=== PATIENT | male | born 1985 | race Caucasian/White ===

== ENCOUNTER 2020-04-07 15:23 | Emergency (ER) | payer OTHER ==
[2020-04-07 15:31] VITALS: RESP 16
[2020-04-07] MEDS: PROPARACAINE 0.5% OPHTH DROPS 15 ML BTL RIGHT EYE STA (15:57)
[2020-04-07] MEDS: FLUORESCEIN STRIPS 1 MG STRIP RIGHT EYE ONE (15:58)
--- NOTE | 2020-04-07 15:59 | ED ---
Eye Problem HPI - General Chief complaint: Eye Problems Stated complaint: R eye pain Time Seen by Provider: 04/07/20 15:36 Source: patient Mode of arrival: ambulatory Limitations: no limitations - History of Present Illness Initial comments: Patient is a 35-year-old male presenting to emergency Department with complaints of getting hot antifreeze into his right eye. Patient states about 40 minutes prior to arrival he was changing a radiator cap when it flew off and hot antifreeze splashed on his right hand as well as onto his right eye. Patient st ates he did attempt to flush the right eye with lots of water however he feels like his vision is slightly blurry and he is having some burning around his right eye. He also has been flushing his right hand. He denies wearing contacts. Patient has no other complaints at this time. Upon arrival to the ER his vitals are stable. - Related Data Home Medications Medication Instructions Recorded Confirmed Esomeprazole Magnesium [NexIUM 20 mg PO DAILY 04/07/20 04/07/20 24Hr] Allergies Allergy/AdvReac Type Severity Reaction Status Date / Time omeprazole [From Prilosec] AdvReac Nausea Verified 04/07/20 16:56 ondansetron [From Zofran] AdvReac Nausea & Verified 04/07/20 16:56 Vomiting tramadol AdvReac Nausea & Verified 04/07/20 16:56 Vomiting Review of Systems ROS Statement: Those systems with pertinent positive or pertinent negative responses have been documented in the HPI. ROS Other: All systems not noted in ROS Statement are negative. 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 Patient is nontoxic and in no acute distress. HEAD: Atraumatic, normocephalic. EYES: Pupils equal round and reactive to light, extraocular movements intact, sclera anicteric. Eyelids were unremarkable. Right conjunctiva slightly injected. He does have some superficial first-degree chavarria on outside of the eye, lateral aspect. no blistering. Visual acuity: left eye 20/20, right 20/70. ENT: TMs normal, nares patent, oropharynx clear without exudates. Moist mucous membranes. NECK: Normal range of motion, supple without lymphadenopathy or JVD. LUNGS: Unlabored respirations. Breath sounds clear to auscultation bilaterally and equal. No wheezes rales or rhonchi. HEART: Regular rate and rhythm without murmurs, rubs or gallops. ABDOMEN: Soft, nontender, normoactive bowel sounds. No guarding, no rebound. No masses appreciated. : Deferred MUSCULOSKELETAL: Normal extremities with adequate strength and normal range of motion, no pitting or edema. No clubbing or cyanosis. NEUROLOGICAL: Patient is alert and oriented x 3. Motor and sensory are also intact. Cranial nerves II through XII grossly intact. Symmetrical smile. Normal speech, normal gait. PSYCH: Normal mood, normal affect. SKIN: Warm, Dry, normal turgor. Patient has superficial burn on his right index and middle finger. Some mild erythema of the right hand, no blistering. Limitations: no limitations Course Vital Signs 04/07/20 04/07/20 04/07/20 15:27 16:28 17:07 Temperature 98.6 F 98.3 F 98.3 F Pulse Rate 73 68 68 Respiratory 16 16 16 Rate Blood Pressure 161/85 148/78 148/82 O2 Sat by Pulse 96 98 98 Oximetry Medical Decision Making - Medical Decision Making Patient is a 35-year-old male who presents after getting hot antifreeze splashed onto the right side of his face as well as his right hand. He was complaining of blurry vision and irritation of the right eye. Patient's eye was flushed with approximately 1 L of fluid, fluorescein stain did not reveal any significant uptake. Patient did have some relief with a drop of proparacaine drops. Patient's visual acuity of the right eye is 20/70, normally 20/20. I did speak with Dr. Edward who is okay with patient being discharged with eye lubricating drops. He recommends Tylenol/Motrin for discomfort. If symptoms persist patient can follow-up with Dr. Edward in his office. Patient is in agreement with this plan of care. He is stable for discharge. Return parameters were discussed with the patient and he verbalized understanding. Case discussed with Dr. Faith. Disposition Clinical Impression: Corneal irritation of right eye, First degree burn of face, First degree burn of hand Disposition: HOME SELF-CARE Condition: Stable Instructions (If sedation given, give patient instructions): Eye Lubricant (Into the eye) Additional Instructions: Please return to the Emergency Department if symptoms worsen or any other concerns. Continue with eye drops as prescribed. 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 May take Tylenol Motrin for discomfort. Keep the chavarria clean and dry. Is patient prescribed a controlled substance at d/c from ED?: No Referrals: None,Stated [Primary Care Provider] - 1-2 days Bacilio Edward MD [STAFF PHYSICIAN] - 1-2 days
[2020-04-07 16:33] VITALS: PULSE 68; TEMP 98.3
[2020-04-07] MEDS: KETOROLAC 15 MG/ML 1 ML VIAL IM STA (16:58)
[2020-04-07] MEDS: ARTIFICIAL TEARS-HYPROMELLOSE DROPS 15 ML BTL RIGHT EYE PRN (17:04)
[2020-04-07 17:09] VITALS: BP 148/82
== END 2020-04-07 17:09 | disposition home or self-care (01) ==
LOC: EC 15:23
DX: T26.01XA Burn of right eyelid and periocular area, initial encounter (principal); T23.131A Burn of first degree of multiple right fingers (nail), not including thumb, initial encounter; T23.101A Burn of first degree of right hand, unspecified site, initial encounter; T31.0 Burns involving less than 10% of body surface; Z88.6 Allergy status to analgesic agent; Z88.8 Allergy status to other drugs, medicaments and biological substances; Z86.14 Personal history of Methicillin resistant Staphylococcus aureus infection; X12.XXXA Contact with other hot fluids, initial encounter
CPT/HCPCS: 99283; 96372; J1885

== ENCOUNTER 2021-03-13 16:33 | Emergency (ER) | payer OTHER ==
[2021-03-13] MEDS ORDERED: SODIUM CHLORIDE 0.9% 500 ML 500 ML IV STA (19:07)
[2021-03-13] MEDS ORDERED: MAG HYDROX/AL HYDROX/SIMETH 30 ML, HYOSCYAMINE ELIXIR 10 ML, LIDOCAINE VISCOUS 2% 10 ML PO STA ×3 (19:07)
[2021-03-13] MEDS ORDERED: SODIUM CHLORIDE 0.9% 1,000 ML IV STA (19:07)
[2021-03-13] MEDS ORDERED: FAMOTIDINE 20 MG/2 ML VIAL IV STA (19:08)
[2021-03-13] MEDS ORDERED: HYDROmorphone 0.5 MG/0.5 ML SYRINGE IVP STA (19:08)
[2021-03-13] MEDS ORDERED: METOCLOPRAMIDE 5 MG/ML 2 ML VIAL IVP STA (19:08)
--- NOTE | 2021-03-13 19:14 | ED ---
Abdominal Pain HPI - General Chief Complaint: Abdominal Pain Stated Complaint: abd pain Time Seen by Provider: 03/13/21 18:56 Source: patient, RN notes reviewed Mode of arrival: ambulatory Limitations: no limitations - History of Present Illness Initial Comments: This a 36-year-old male presents emergency dept with chief complaint of abdominal pain. Patient states she's been having increasing abdominal last 3 days. Patient states that he has a history of gastric ulcers. Patient is on current Nexium. Patient states his poor diet causing his symptoms. Patient states he felt that his stools been darker than usual. Patient states occasionally does take MiraLAX for has not been recently. Denies NSAID use. Denies vomiting states nauseated. - Related Data Home Medications Medication Instructions Recorded Confirmed Esomeprazole Magnesium [NexIUM 20 mg PO DAILY 04/07/20 04/07/20 24Hr] Previous Rx's Medication Instructions Recorded Metoclopramide [Reglan] 10 mg PO TID PRN #15 tab 03/13/21 Sucralfate [Carafate] 1 gm PO BID #20 tablet 03/13/21 Allergies Allergy/AdvReac Type Severity Reaction Status Date / Time Penicillins Allergy Rash/Hives Verified 03/13/21 16:44 omeprazole [From Prilosec] AdvReac Nausea Verified 03/13/21 16:44 ondansetron [From Zofran] AdvReac Nausea & Verified 03/13/21 16:44 Vomiting tramadol AdvReac Nausea & Verified 03/13/21 16:44 Vomiting Review of Systems ROS Statement: Those systems with pertinent positive or pertinent negative responses have been documented in the HPI. ROS Other: All systems not noted in ROS Statement are negative. Past Medical History Past Medical History: Asthma Additional Past Medical History / Comment(s): esophogeal ulcers History of Any Multi-Drug Resistant Organisms: MRSA Date of last positivie culture/infection: 2014 MDRO Source:: (L) leg Past Surgical History: No Surgical Hx Reported Past Psychological History: No Psychological Hx Reported Smoking Status: Never smoker Past Alcohol Use History: None Reported Past Drug Use History: Marijuana General Exam Limitations: no limitations General appearance: alert, in no apparent distress Head exam: Present: atraumatic, normocephalic, normal inspection Eye exam: Present: normal appearance, PERRL, EOMI. Absent: scleral icterus, conjunctival injection, periorbital swelling Neck exam: Present: normal inspection. Absent: tenderness, meningismus, lymphadenopathy Respiratory exam: Present: normal lung sounds bilaterally. Absent: respiratory distress, wheezes, rales, rhonchi, stridor Cardiovascular Exam: Present: regular rate, normal rhythm, normal heart sounds. Absent: systolic murmur, diastolic murmur, rubs, gallop, clicks GI/Abdominal exam: Present: soft, tenderness (Right upper quadrant, epigastric), normal bowel sounds. Absent: distended, guarding, rebound, rigid Course Vital Signs 03/13/21 03/13/21 16:42 20:48 Temperature 98.7 F Pulse Rate 72 76 Respiratory 19 20 Rate Blood Pressure 133/84 137/80 O2 Sat by Pulse 97 97 Oximetry Medical Decision Making - Medical Decision Making All some labs unremarkable. Patient did have mild dehydration was hydrated, given GI cocktail and antiemetics feels improved he discharged in stable condition. - Lab Data Result diagrams: 03/13/21 19:48 03/13/21 19:48 Lab Results 03/13/21 03/13/21 03/13/21 Range/Units 19:48 19:48 19:48 WBC 5.9 (3.8-10.6) k/uL RBC 5.01 (4.30-5.90) m/uL Hgb 14.7 (13.0-17.5) gm/dL Hct 44.4 (39.0-53.0) % MCV 88.8 (80.0-100.0) fL MCH 29.4 (25.0-35.0) pg MCHC 33.1 (31.0-37.0) g/dL RDW 12.4 (11.5-15.5) % Plt Count 267 (150-450) k/uL MPV 7.8 Neutrophils % 64 % Lymphocytes % 22 % Monocytes % 10 % Eosinophils % 1 % Basophils % 1 % Neutrophils # 3.8 (1.3-7.7) k/uL Lymphocytes # 1.3 (1.0-4.8) k/uL Monocytes # 0.6 (0-1.0) k/uL Eosinophils # 0.1 (0-0.7) k/uL Basophils # 0.1 (0-0.2) k/uL PT 11.3 (9.0-12.0) sec INR 1.1 (<1.2) APTT 26.0 (22.0-30.0) sec Sodium (137-145) mmol/L Potassium (3.5-5.1) mmol/L Chloride (98-107) mmol/L Carbon Dioxide (22-30) mmol/L Anion Gap mmol/L BUN (9-20) mg/dL Creatinine (0.66-1.25) mg/dL Est GFR (CKD-EPI)AfAm (>60 ml/min/1.73 sqM) Est GFR (CKD-EPI)NonAf (>60 ml/min/1.73 sqM) Glucose (74-99) mg/dL Calcium (8.4-10.2) mg/dL Total Bilirubin (0.2-1.3) mg/dL AST (17-59) U/L ALT (4-49) U/L Alkaline Phosphatase (38-126) U/L Total Protein (6.3-8.2) g/dL Albumin (3.5-5.0) g/dL Amylase (30-110) U/L Lipase (23-300) U/L Urine Color Yellow Urine Appearance Clear (Clear) Urine pH 5.5 (5.0-8.0) Ur Specific [place] 1.035 (1.001-1.035) Urine Protein 1+ H (Negative) Urine Glucose (UA) Negative (Negative) Urine Ketones 2+ H (Negative) Urine Blood Negative (Negative) Urine Nitrite Negative (Negative) Urine Bilirubin Negative (Negative) Urine Urobilinogen <2.0 (<2.0) mg/dL Ur Leukocyte Esterase Negative (Negative) Urine RBC <1 (0-5) /hpf Urine WBC 1 (0-5) /hpf Hyaline Casts 3 H (0-2) /lpf Urine Mucus Many H (None) /hpf 03/13/21 Range/Units 19:48 WBC (3.8-10.6) k/uL RBC (4.30-5.90) m/uL Hgb (13.0-17.5) gm/dL Hct (39.0-53.0) % MCV (80.0-100.0) fL MCH (25.0-35.0) pg MCHC (31.0-37.0) g/dL RDW (11.5-15.5) % Plt Count (150-450) k/uL MPV Neutrophils % % Lymphocytes % % Monocytes % % Eosinophils % % Basophils % % Neutrophils # (1.3-7.7) k/uL Lymphocytes # (1.0-4.8) k/uL Monocytes # (0-1.0) k/uL Eosinophils # (0-0.7) k/uL Basophils # (0-0.2) k/uL PT (9.0-12.0) sec INR (<1.2) APTT (22.0-30.0) sec Sodium 140 (137-145) mmol/L Potassium 4.0 (3.5-5.1) mmol/L Chloride 101 (98-107) mmol/L Carbon Dioxide 27 (22-30) mmol/L Anion Gap 12 mmol/L BUN 20 (9-20) mg/dL Creatinine 1.03 (0.66-1.25) mg/dL Est GFR (CKD-EPI)AfAm >90 (>60 ml/min/1.73 sqM) Est GFR (CKD-EPI)NonAf >90 (>60 ml/min/1.73 sqM) Glucose 89 (74-99) mg/dL Calcium 9.2 (8.4-10.2) mg/dL Total Bilirubin 0.5 (0.2-1.3) mg/dL AST 34 (17-59) U/L ALT 42 (4-49) U/L Alkaline Phosphatase 69 (38-126) U/L Total Protein 7.8 (6.3-8.2) g/dL Albumin 4.6 (3.5-5.0) g/dL Amylase 58 (30-110) U/L Lipase 112 (23-300) U/L Urine Color Urine Appearance (Clear) Urine pH (5.0-8.0) Ur Specific [place] (1.001-1.035) Urine Protein (Negative) Urine Glucose (UA) (Negative) Urine Ketones (Negative) Urine Blood (Negative) Urine Nitrite (Negative) Urine Bilirubin (Negative) Urine Urobilinogen (<2.0) mg/dL Ur Leukocyte Esterase (Negative) Urine RBC (0-5) /hpf Urine WBC (0-5) /hpf Hyaline Casts (0-2) /lpf Urine Mucus (None) /hpf Disposition Clinical Impression: Gastritis Disposition: HOME SELF-CARE Condition: Stable Instructions (If sedation given, give patient instructions): Gastritis (ED), Diet for Stomach Ulcers and Gastritis (ED) Additional Instructions: Please return to the Emergency Department if symptoms worsen or any other conc erns. Prescriptions: Sucralfate [Carafate] 1 gm PO BID #20 tablet Metoclopramide [Reglan] 10 mg PO TID PRN #15 tab PRN Reason: Nausea Is patient prescribed a controlled substance at d/c from ED?: No Referrals: None,Stated [Primary Care Provider] - 1-2 days Sol Wilburn MD [STAFF PHYSICIAN] - 1-2 days Time of Disposition: 20:57
[2021-03-13 19:57] LABS: Basophils # (A) 0.1 k/uL (0-0.2); Basophils % (A) 1 %; Eosinophils # (A) 0.1 k/uL (0-0.7); Eosinophils % (A) 1 %; HCT 44.4 % (39.0-53.0); HGB 14.7 gm/dL (13.0-17.5); Lymphocytes # (A) 1.3 k/uL (1.0-4.8); Lymphocytes % (A) 22 %; MCH 29.4 pg (25.0-35.0); MCHC 33.1 g/dL (31.0-37.0); MCV 88.8 fL (80.0-100.0); Mean Platelet Volume 7.8; Monocytes # (A) 0.6 k/uL (0-1.0); Monocytes % (A) 10 %; Neutrophils # (A) 3.8 k/uL (1.3-7.7); Neutrophils % (A) 64 %; Platelet Count 267 k/uL (150-450); RBC 5.01 m/uL (4.30-5.90); RDW 12.4 % (11.5-15.5); WBC 5.9 k/uL (3.8-10.6)
[2021-03-13 20:01] LABS: Appearance,Urine Clear (Clear); Bilirubin,Urine Negative (Negative); Blood,Urine Negative (Negative); Color,Urine Yellow; Glucose,Urine (UA) Negative (Negative); Hyaline Casts,Urine 3 /lpf (0-2); Ketones,Urine 2+ (Negative); Leukocyte Esterase,Urine Negative (Negative); Mucus,Urine Many /hpf; Nitrite,Urine Negative (Negative); PH, Urine 5.5 (5.0-8.0); Protein,Urine 1+ (Negative); RBC,Urine <1 /hpf (0-5); Specific Gravity,Urine 1.035 (1.001-1.035); Urobilinogen,Urine <2.0 mg/dL (<2.0); WBC,Urine 1 /hpf (0-5)
[2021-03-13 20:06] LABS: ALT 42 U/L (4-49); AST 34 U/L (17-59); African American GFR (CKD) >90 (>60 ml/min/1.73 sqM); Albumin 4.6 g/dL (3.5-5.0); Alkaline Phosphatase 69 U/L (38-126); Amylase 58 U/L (30-110); Anion Gap 12 mmol/L; Blood Urea Nitrogen 20 mg/dL (9-20); Calcium 9.2 mg/dL (8.4-10.2); Carbon Dioxide 27 mmol/L (22-30); Chloride 101 mmol/L (98-107); Glucose 89 mg/dL (74-99); Lipase 112 U/L (23-300); Non-African American GFR(CKD) >90 (>60 ml/min/1.73 sqM); Sodium 140 mmol/L (137-145); Total Bilirubin 0.5 mg/dL (0.2-1.3); Total Protein 7.8 g/dL (6.3-8.2)
[2021-03-13 20:13] LABS: INR 1.1 (<1.2); Prothrombin Time 11.3 sec (9.0-12.0)
[2021-03-13] MEDS ORDERED: SUCRALFATE 1 GM TAB PO STA (20:54)
--- NOTE | 2021-03-13 20:54 | US ---
EXAMINATION TYPE: US gallbladder DATE OF EXAM: 03/13/2021 COMPARISON: NONE CLINICAL HISTORY: pain. Abdominal pain. EXAM MEASUREMENTS: Liver Length: 16.9 cm Gallbladder Wall: 0.27 cm Right Kidney: 10.6 x 5.7 x 5.2 cm Limited due to gas. Pancreas: Not well seen. Liver: Appears coarse with increased echogenicity. Measures upper limits of normal. Anechoic area see n near the gallbladder measuring 0.9 x 0.7 x 0.6 cm. Gallbladder: Appears anechoic. Evidence for sonographic Bradley's sign: Patient feels pain throughout the RUQ. CBD: Not seen. Right Kidney: No hydronephrosis or masses seen IMPRESSION: No gallstones or dilated ducts.
[2021-03-13 21:45] VITALS: BP 140/84; PULSE 74; RESP 16; TEMP 98.3
== END 2021-03-13 21:44 | disposition home or self-care (01) ==
LOC: EC 16:33
DX: K29.70 Gastritis, unspecified, without bleeding (principal); J45.909 Unspecified asthma, uncomplicated; F12.90 Cannabis use, unspecified, uncomplicated; Z88.0 Allergy status to penicillin; Z88.1 Allergy status to other antibiotic agents
CPT/HCPCS: 99284; 96374; 96375 ×2; 96361; 36415; 80053; 82150; 83690; 85025; 85610; 85730; 81001; 76705; J2765; J1170

== ENCOUNTER 2021-04-19 14:21 | Emergency (ER) | payer OTHER ==
[2021-04-19 14:41] VITALS: BP 134/97; PULSE 60; RESP 16; TEMP 98.4
[2021-04-19] MEDS ORDERED: FLUORESCEIN STRIPS 1 MG STRIP LEFT EYE ONE (14:54)
[2021-04-19] MEDS ORDERED: DIPH,PERTUS(ACELL)TETVAC-LF 0.5 ML VIAL IM ONE (14:54)
[2021-04-19] MEDS ORDERED: PROPARACAINE 0.5% OPHTH DROPS 15 ML BTL LEFT EYE STA (14:54)
--- NOTE | 2021-04-19 15:06 | ED ---
General Adult HPI - General Chief complaint: Eye Problems Stated complaint: Eye Problem Time Seen by Provider: 04/19/21 14:28 Source: patient, RN notes reviewed, old records reviewed Mode of arrival: ambulatory Limitations: no limitations - History of Present Illness Initial comments: This is a well-appearing 36-year-old male who presents to the emergency room with left eye pain. Patient states that he was using a torch at work and it "popped" and a piece of dirt or metal debris came back hitting him under his left eye. He states that he instantly felt burning pain to the eye and put ice on it right away. He states that he does have blurry vision in that eye and seems cloudy. He is not sure if there is a foreign body in the eye. There is a small blister forming just under the lower lid with some redness. -: hour(s) (1) Location: eyes (left) Severity scale (1-10): 10 Quality: burning Consistency: constant Improves with: none Worsens with: none Associated Symptoms: denies other symptoms Treatments Prior to Arrival: none - Related Data Home Medications Medication Instructions Recorded Confirmed Esomeprazole Magnesium [NexIUM 20 mg PO BID 04/07/20 04/19/21 24Hr] Sucralfate [Carafate] 1 gm PO DAILY 04/19/21 04/19/21 Previous Rx's Medication Instructions Recorded Erythromycin Ophth Oint [Romycin 1 applic LEFT EYE QID 5 Days #1 gm 04/19/21 Ophth Oint] Allergies Allergy/AdvReac Type Severity Reaction Status Date / Time Penicillins Allergy Rash/Hives Verified 04/19/21 15:57 omeprazole [From Prilosec] AdvReac Nausea Verified 04/19/21 15:57 ondansetron [From Zofran] AdvReac Nausea & Verified 04/19/21 15:57 Vomiting tramadol AdvReac Nausea & Verified 04/19/21 15:57 Vomiting Review of Systems ROS Statement: Those systems with pertinent positive or pertinent negative responses have been documented in the HPI. ROS Other: All systems not noted in ROS Statement are negative. Past Medical History Past Medical History: Asthma Additional Past Medical History / Comment(s): esophogeal ulcers History of Any Multi-Drug Resistant Organisms: MRSA Date of last positivie culture/infection: 2014 MDRO Source:: (L) leg Past Surgical History: No Surgical Hx Reported Past Psychological History: No Psychological Hx Reported Smoking Status: Never smoker Past Alcohol Use History: None Reported Past Drug Use History: Marijuana General Exam Limitations: no limitations General appearance: alert, in no apparent distress Head exam: Present: atraumatic, normocephalic, normal inspection Eye exam: Present: normal appearance, PERRL, EOMI, conjunctival injection (Left eye), periorbital tenderness (under left eye). Absent: scleral icterus, nystagmus, periorbital swelling Pupils: Present: normal accommodation, other (negative Darren sign, no hyphema or subconjunctival hemorrhage) ENT exam: Present: normal exam, normal oropharynx, mucous membranes moist Neck exam: Present: full ROM. Absent: tenderness, meningismus Cardiovascular Exam: Present: regular rate Neurological exam: Present: alert, oriented X3, normal gait Psychiatric exam: Present: normal affect, normal mood Skin exam: Present: warm, dry, intact, normal color. Absent: rash, cyanosis, diaphoretic Course Vital Signs 04/19/21 14:33 Temperature 98.4 F Pulse Rate 60 Respiratory 16 Rate Blood Pressure 134/97 O2 Sat by Pulse 98 Oximetry - Reevaluation(s) Reevaluation #1: 04/19/21 15:[address] Harris who states that he will see the patient in the office today. Time: 15:47 Medical Decision Making - Medical Decision Making Looney lamp examination with fluorescein stain completed, there is no evidence of corneal abrasion. There is no evidence of foreign body. Negative Darren sign. There is no hyphema noted. Visual acuity shows left eye 20/100, right eye 20/50. He was directed to go directly to Dr Harris's office who will evaluate him. Erythromycin ointment was prescribed for the eye and to be placed on the burn under the eye. Directed to return to the emergency room if any new or conc erning symptoms. His tetanus shot is up-to-date per patient. Case discussed with Dr. Faith. Disposition Clinical Impression: Facial burn, Keratitis Disposition: HOME SELF-CARE Condition: Good Instructions (If sedation given, give patient instructions): Superficial Burn (ED), Eye Pain (ED) Additional Instructions: Use the erythromycin ointment to the left eye and the burn below the eye. Follow-up with ophthalmology this week. Return to the emergency room if any new or concerning symptoms. Prescriptions: Erythromycin Ophth Oint [Romycin Ophth Oint] 1 applic LEFT EYE QID 5 Days #1 gm Is patient prescribed a controlled substance at d/c from ED?: No Referrals: None,Stated [Primary Care Provider] - 1-2 days Odell Harris MD [STAFF PHYSICIAN] - 1-2 days Time of Disposition: 15:50
[2021-04-19] MEDS ORDERED: IBUPROFEN 600 MG TAB PO STA (15:07)
== END 2021-04-19 15:53 | disposition home or self-care (01) ==
LOC: EC 14:21
DX: T20.00XA Burn of unspecified degree of head, face, and neck, unspecified site, initial encounter (principal); H16.9 Unspecified keratitis; J45.909 Unspecified asthma, uncomplicated; F12.90 Cannabis use, unspecified, uncomplicated
CPT/HCPCS: 99283

== ENCOUNTER 2021-11-05 20:28 | Emergency (ER) | payer OTHER ==
[2021-11-05 20:48] VITALS: RESP 18; TEMP 98.4
[2021-11-05] MEDS ORDERED: MORPHINE SULFATE 4 MG/ML SYRINGE IV STA (23:51)
[2021-11-05] MEDS ORDERED: ONDANSETRON 4 MG/2 ML VIAL IVP STA (23:51)
[2021-11-05] MEDS ORDERED: PANTOPRAZOLE 40 MG/10 ML VIAL IVP STA (23:51)
[2021-11-05] MEDS ORDERED: SODIUM CHLORIDE 0.9% 1,000 ML IV STA (23:51)
[2021-11-05] MEDS ORDERED: MAG HYDROX/AL HYDROX/SIMETH 30 ML, HYOSCYAMINE ELIXIR 10 ML, LIDOCAINE VISCOUS 2% 10 ML PO STA ×3 (23:52)
--- NOTE | 2021-11-06 00:04 | ED ---
Nausea/Vomiting/Diarrhea HPI - General Chief complaint: Nausea/Vomiting/Diarrhea Stated complaint: Abdominal pain Time Seen by Provider: 11/05/21 23:04 Source: patient Mode of arrival: ambulatory Limitations: no limitations - Related Data Home Medications Medication Instructions Recorded Confirmed Esomeprazole Magnesium [NexIUM 20 mg PO BID 04/07/20 04/19/21 24Hr] Sucralfate [Carafate] 1 gm PO DAILY 04/19/21 04/19/21 Previous Rx's Medication Instructions Recorded Erythromycin Ophth Oint [Romycin 1 applic LEFT EYE QID 5 Days #1 gm 04/19/21 Ophth Oint] Allergies Allergy/AdvReac Type Severity Reaction Status Date / Time Penicillins Allergy Rash/Hives Verified 11/05/21 20:45 omeprazole [From Prilosec] AdvReac Nausea Verified 11/05/21 20:45 ondansetron [From Zofran] AdvReac Nausea & Verified 11/05/21 20:45 Vomiting tramadol AdvReac Nausea & Verified 11/05/21 20:45 Vomiting Review of Systems ROS Statement: Those systems with pertinent positive or pertinent negative responses have been documented in the HPI. ROS Other: All systems not noted in ROS Statement are negative. Past Medical History Past Medical History: Asthma Additional Past Medical History / Comment(s): esophogeal ulcers History of Any Multi-Drug Resistant Organisms: MRSA Date of last positivie culture/infection: 2014 MDRO Source:: (L) leg Past Surgical History: No Surgical Hx Reported Past Psychological History: No Psychological Hx Reported Smoking Status: Never smoker Past Alcohol Use History: None Reported Past Drug Use History: Marijuana General Exam Limitations: no limitations Course Vital Signs 11/05/21 20:45 Temperature 98.4 F Pulse Rate 65 Respiratory 18 Rate Blood Pressure 116/57 O2 Sat by Pulse 100 Oximetry Medical Decision Making - Lab Data Result diagrams: 11/06/21 00:00 11/06/21 00:00 Lab Results 11/06/21 11/06/21 Range/Units 00:00 00:00 WBC 8.4 (3.8-10.6) k/uL RBC 4.43 (4.30-5.90) m/uL Hgb 12.9 L (13.0-17.5) gm/dL Hct 38.8 L (39.0-53.0) % MCV 87.6 (80.0-100.0) fL MCH 29.1 (25.0-35.0) pg MCHC 33.2 (31.0-37.0) g/dL RDW 13.8 (11.5-15.5) % Plt Count 305 (150-450) k/uL MPV 7.7 Neutrophils % 53 % Lymphocytes % 29 % Monocytes % 7 % Eosinophils % 5 % Basophils % 1 % Neutrophils # 4.5 (1.3-7.7) k/uL Lymphocytes # 2.5 (1.0-4.8) k/uL Monocytes # 0.6 (0-1.0) k/uL Eosinophils # 0.4 (0-0.7) k/uL Basophils # 0.1 (0-0.2) k/uL Sodium 137 (137-145) mmol/L Potassium 3.8 (3.5-5.1) mmol/L Chloride 105 (98-107) mmol/L Carbon Dioxide 24 (22-30) mmol/L Anion Gap 8 mmol/L BUN 16 (9-20) mg/dL Creatinine 0.86 (0.66-1.25) mg/dL Est GFR (CKD-EPI)AfAm >90 (>60 ml/min/1.73 sqM) Est GFR (CKD-EPI)NonAf >90 (>60 ml/min/1.73 sqM) Glucose 96 (74-99) mg/dL Calcium 8.4 (8.4-10.2) mg/dL Total Bilirubin 0.3 (0.2-1.3) mg/dL AST 21 (17-59) U/L ALT 18 (4-49) U/L Alkaline Phosphatase 76 (38-126) U/L Total Protein 6.6 (6.3-8.2) g/dL Albumin 4.0 (3.5-5.0) g/dL Amylase 58 (30-110) U/L Lipase 125 (23-300) U/L Disposition Clinical Impression: Nausea & vomiting, Abdominal pain Disposition: HOME SELF-CARE Instructions (If sedation given, give patient instructions): Acute Nausea and Vomiting (ED), Abdominal Pain (ED) Is patient prescribed a controlled substance at d/c from ED?: No Referrals: None,Stated [Primary Care Provider] - 1-2 days
[2021-11-06 00:35] LABS: Basophils # (A) 0.1 k/uL (0-0.2); Basophils % (A) 1 %; Eosinophils # (A) 0.4 k/uL (0-0.7); Eosinophils % (A) 5 %; HCT 38.8 % (39.0-53.0); HGB 12.9 gm/dL (13.0-17.5); Lymphocytes # (A) 2.5 k/uL (1.0-4.8); Lymphocytes % (A) 29 %; MCH 29.1 pg (25.0-35.0); MCHC 33.2 g/dL (31.0-37.0); MCV 87.6 fL (80.0-100.0); Mean Platelet Volume 7.7; Monocytes # (A) 0.6 k/uL (0-1.0); Monocytes % (A) 7 %; Neutrophils # (A) 4.5 k/uL (1.3-7.7); Neutrophils % (A) 53 %; Platelet Count 305 k/uL (150-450); RBC 4.43 m/uL (4.30-5.90); RDW 13.8 % (11.5-15.5); WBC 8.4 k/uL (3.8-10.6)
[2021-11-06 00:47] LABS: ALT 18 U/L (4-49); AST 21 U/L (17-59); African American GFR (CKD) >90 (>60 ml/min/1.73 sqM); Alkaline Phosphatase 76 U/L (38-126); Amylase 58 U/L (30-110); Anion Gap 8 mmol/L; Blood Urea Nitrogen 16 mg/dL (9-20); Calcium 8.4 mg/dL (8.4-10.2); Carbon Dioxide 24 mmol/L (22-30); Chloride 105 mmol/L (98-107); Glucose 96 mg/dL (74-99); Lipase 125 U/L (23-300); Non-African American GFR(CKD) >90 (>60 ml/min/1.73 sqM); Potassium 3.8 mmol/L (3.5-5.1); Sodium 137 mmol/L (137-145); Total Bilirubin 0.3 mg/dL (0.2-1.3); Total Protein 6.6 g/dL (6.3-8.2)
--- NOTE | 2021-11-06 01:26 | CT ---
EXAMINATION TYPE: CT abdomen pelvis wo con DATE OF EXAM: 11/06/2021 COMPARISON: None HISTORY: Nausea vomiting CT DLP: 637.1 mGycm Automated exposure control for dose reduction was used. Images obtained with no contrast from the diaphragm to the floor the pelvis. Lung bases are clear. No pleural effusion. Heart size is normal. No pericardial effusion. Liver spleen and stomach pancreas gallbladder appear intact. The bile ducts are not dilated. There is no adrenal mass. Kidneys have normal size and contour. No hydronephrosis. Ureters are not di lated. There is no retroperitoneal adenopathy. Appendix is posterior and appears normal. Bladder dist ends smoothly. No inguinal hernia. No free fluid in the pelvis. There are a few small sigmoid diverticula. No diverticulitis. There is no mesenteric edema. No ascites or free air. No bowel obstruction. No evidence of pelvic mas s. The lumbar spine is intact. Bony pelvis is intact. Hip joints appear normal. Sacroiliac joints appear normal. IMPRESSION: Negative CT scan abdomen and pelvis. Normal appendix.
[2021-11-06 02:05] VITALS: BP 121/75; PULSE 87
== END 2021-11-06 02:12 | disposition home or self-care (01) ==
LOC: EC 20:28
DX: R10.9 Unspecified abdominal pain (principal); R19.7 Diarrhea, unspecified; J45.909 Unspecified asthma, uncomplicated; F12.90 Cannabis use, unspecified, uncomplicated; Z88.0 Allergy status to penicillin; Z88.8 Allergy status to other drugs, medicaments and biological substances; Z79.51 Long term (current) use of inhaled steroids; Z79.899 Other long term (current) drug therapy
CPT/HCPCS: 36415; 80053; 82150; 83690; 85025; 74176; 99284; 96374; 96375 ×2; J2270; J2405; C9113